=== PATIENT | male | born 1980 | race Caucasian/White ===

== ENCOUNTER 2016-07-28 15:23 | Emergency (ER) | payer BC ==
--- NOTE | 2016-07-28 16:12 | Emergency Department Record ---
History of Present Illness - General Chief Complaint: Numbness Stated Complaint: LEGS ARE NUMB Time Seen by Provider: 07/28/16 16:07 Source: Patient Mode of Arrival: Ambulatory Limitations: No limitations - History of Present Illness Initial Comments: 36 yo male presents to ED for evaluation of "numbness" the the lower extremities x 2 weeks. Patient reports that his symptoms worsen with ambulation and movement, denies any midline back pain, and denies and lower extremity weakness. Patient denies health problems at his baseline. Onset/Timin -: Week(s) Location: Left leg, Right leg History of same: No Severity: Moderate Quality: Numb Improves With: None Worsens With: None Associated Symptoms: Denies other symptoms - [place] Coma Scale Eye Response: (4) Open spontaneously Motor Response: (6) Obeys commands Verbal Response: (5) Oriented [place] Total: 15 - Related Data Home Medications: Previous Rx's Medication Instructions Recorded Metformin HCl [Glucophage] 500 mg PO BID #30 tablet 07/28/16 Allergies/Adverse Reactions: Allergies Allergy/AdvReac Type Severity Reaction Status Date / Time No Known Drug Allergies Allergy Verified 09/03/14 10:07 Travel Screening - Travel/Exposure Within Last 30 Days Have you traveled within the last 30 days?: No - Travel/Exposure Within Last Year Have you traveled outside the [place] in the last year?: No - Additonal Travel Details Have you been exposed to anyone with a communicable illness?: No - Travel Symptoms Symptom Screening: None Review of Systems Constitutional: Denies: Chills, Fever, Malaise, Night sweats Eyes: Denies: Eye discharge, Eye pain ENT: Denies: Congestion, Ear pain, Epistaxis Respiratory: Denies: Cough, Dyspnea Cardiovascular: Denies: Chest pain, Dyspnea on exertion Endocrine: Denies: Fatigue, Heat or cold intolerance Gastrointestinal: Denies: Abdominal pain, Nausea, Vomiting Genitourinary: Denies: Incontinence, Retention Musculoskeletal: Denies: Arthralgia, Back pain, Gout, Joint swelling Skin: Denies: Bruising, Change in color Neurological: Reports: Numbness. Denies: Abnormal gait, Confusion, Headache, Seizure Psychiatric: Denies: Anxiety Hematological/Lymphatic: Denies: Anemia, Blood Clots Past Medical History - SOCIAL HISTORY Smoking Status: Light tobacco smoker (<10/day) Alcohol Use: Rare Drug Use: Heavy Drug Use Detail:: Marijuana - RESPIRATORY Hx Respiratory Disorders: No - CARDIOVASCULAR Hx Cardio Disorders: No - NEURO Hx Neuro Disorders: No - GI Hx GI Disorders: Yes Hx Reflux: Yes - Hx Genitourinary Disorders: No - ENDOCRINE Hx Endocrine Disorders: No - MUSCULOSKELETAL Hx Musculoskeletal Disorders: No - PSYCH Hx Psych Problems: No - HEMATOLOGY/ONCOLOGY Hx Hematology/Oncology Disorders: No Family Medical History Any Significant Family History?: No Physical Exam - General General Appearance: Alert, Oriented x3, Cooperative, No acute distress Limitations: No limitations - Head Head exam: Atraumatic, Normocephalic, Normal inspection Head exam detail: negative: Abrasion, Contusion, Hartman's sign, General tenderness, Hematoma, Laceration - Eye Eye exam: Normal appearance. negative: Conjunctival injection, Periorbital swelling, Periorbital tenderness, Scleral icterus - ENT Ear exam: negative: Auricular hematoma, Auricular trauma Nasal Exam: negative: Active bleeding, Discharge, Dried blood, Foreign body Mouth exam: negative: Drooling, Laceration, Muffled voice, Tongue elevation - Neck Neck exam: Normal inspection. negative: Meningismus, Tenderness - Respiratory Respiratory exam: Normal lung sounds bilaterally. negative: Rales, Respiratory distress, Rhonchi, Stridor, Wheezes - Cardiovascular Cardiovascular Exam: Regular rate, Normal rhythm, Normal heart sounds - GI/Abdominal GI/Abdominal exam: Soft. negative: Rebound, Rigid, Tenderness - Rectal Rectal exam: Deferred - exam: Deferred - Extremities Extremities exam: Normal inspection, Other (FROM of the lwer extremities, EHL, foot dorsiflexion, and plantar flexion are all 5/5 and symmetric bilaterally, patient has sensation to all dermatomes of the lower extremties bilaterally.). negative: Calf tenderness, Pedal edema, Tenderness - Back Back exam: Denies: CVA tenderness (R), CVA tenderness (L) - Neurological Neurological exam: Alert, Normal gait, Oriented X3 - Psychiatric Psychiatric exam: Normal affect, Normal mood - Skin Skin exam: Normal color. negative: Abrasion Type of lesion: negative: abrasion Course Vital Signs 07/28/16 15:37 Temperature 98.5 F Pulse Rate [ 99 H Pulse Ox Probe] Respiratory 18 Rate Blood Pressure 130/86 [Left Arm] Pulse Ox 97 - Reevaluation(s) Reevaluation #1: 07/28/16 16:11 On examination, patient has very flat affect, stands and ambulates easily, no evidence for spinal cord impingement syndrome on examination. Neurological examination is normal as well, and CT Brain imaging does not appear indicated based on the patient's symptomology. Reevaluation #2: 07/28/16 16:40 Labs reviewed, glucose is 294, otherwise labs are grossly unremarkable for an acute process. Reevaluation #3: 07/28/16 16:46 Case was discussed with Sommer, agrees with starting Glucophage 500 mg BID with follow-up in the clinic later this week. Patient appears stable for discharge at this time. Reevaluation #4: 07/28/16 17:12 Patient will be able to follow-up in the clinic tomorrow at 2:40. Medical Decision Making - Lab Data Result diagrams: 07/28/16 16:16 07/28/16 16:16 Disposition Disposition: Discharge Clinical Impression: Hyperglycemia Disposition: Home, Self-Care Condition: (2) Stable Instructions: Diabetic Hyperglycemia (ED) Additional Instructions: Return to ED if your symptoms or if you have any concerns. Metformin as directed. Follow-up with Dr. Carballo in the [facility] clinic in 3-5 days as directed. Prescriptions: Metformin HCl [Glucophage] 500 mg PO BID #30 tablet Forms: Patient Portal Access Time of Disposition: 16:44
[2016-07-28 16:29] LABS: BASO % 0.3 % (0-6); EOS % 1.9 % (0-6); GRAN % 55.2 % (47-80); HEMATOCRIT 48.5 % (42.0-52.0); HEMOGLOBIN 17.4 gm/dl (14.0-18.0); LYMPH % 36.5 % (16-45); MEAN CELL VOLUME 78.5 fl (81-97); MEAN CORPUSCULAR HEMOGLOBIN 28.1 pg (27-33); MEAN CORPUSCULAR HGB CONC 35.9 g/dl (32-36); MONO % 6.1 % (0-9); PLATELET COUNT 211 K/uL (130-400); RED BLOOD COUNT 6.18 M/uL (4.40-5.70); RED CELL DISTRIBUTION WIDTH 14.1 % (11.5-14.5); WHITE BLOOD COUNT W/O DIFF 10.6 K/uL (4.2-12.2)
[2016-07-28 16:33] LABS: ALB/GLOB RATIO 1.1 (1.1-1.8); ALBUMIN 4.8 gm/dL (3.5-5.0); ALKALINE PHOSPHATASE 80 U/L (38-126); ALT/SGPT 40 U/L (21-72); ANION GAP 7.5 (7-16); AST/SGOT 42 U/L (17-59); BLOOD UREA NITROGEN 9 mg/dL (9-20); CARBON DIOXIDE 26.5 mmol/L (22-30); CREATININE 0.7 mg/dL (0.66-1.25); EST GLOMERULAR FILTRATION RATE > 60 ml/min; GLUCOSE,RANDOM 294 mg/dL (70-110); TOTAL PROTEIN 9.3 gm/dL (6.3-8.2)
== END 2016-07-28 17:15 | disposition home or self-care (01) ==
LOC: ER 15:23
DX: E11.65 Type 2 diabetes mellitus with hyperglycemia (principal); Z79.84 Long term (current) use of oral hypoglycemic drugs; R20.0 Anesthesia of skin
CPT/HCPCS: 80053; 83036; 85025; 99283

== ENCOUNTER 2018-04-22 14:24 | Emergency (ER) | payer SELFPAY ==
[2018-04-22] MEDS ORDERED: TRANEXAMIC ACID 1,000 MG/10 ML ML TOP ONE (14:36)
[2018-04-22] MEDS ORDERED: THROMBIN/GELATIN FOAM HEMOSTAT (THROMBI-GEL) TP ONE ×2 (14:36→15:40)
[2018-04-22] MEDS ORDERED: Diph,Pert(Acell),Tet Vac 0.5 ML SYR IM ONE (14:40)
--- NOTE | 2018-04-22 14:40 | Emergency Department Record ---
History of Present Illness - General Chief Complaint: Laceration(s) Stated Complaint: LACERATION ON LT HAND Time Seen by Provider: 04/22/18 14:36 Source: Patient Mode of Arrival: Ambulatory Limitations: No limitations - History of Present Illness Initial Commments: 38 yo male presents with a left finger injury. She was using a knife to work on a fishing reel and sliced off a segment of skin. No loss of ROM, tingling or numbness. He is on Coumadin for several peripheral aortic disease. -: Minutes(s) Extremity Location: Left: Hand (index finger) Place: Home Context: Accidental, Sharp object use Associated Symptoms: None Treatments Prior to Arrival: Bandage - [place] Coma Scale Eye Response: (4) Open spontaneously Motor Response: (6) Obeys commands Verbal Response: (5) Oriented [place] Total: 15 - Related Data Home Medications Medication Instructions Recorded Confirmed Last Taken Aspirin [Adult Aspirin] 81 mg PO DAILY 04/22/18 04/22/18 04/21/18 Atorvastatin Calcium [Lipitor] 40 mg PO QHS 04/22/18 04/22/18 04/21/18 Glipizide 10 mg PO BID 04/22/18 04/22/18 04/22/18 Warfarin Sodium [Coumadin] 7.5 mg PO DAILY 04/22/18 04/22/18 04/21/18 Previous Rx's Medication Instructions Recorded Cephalexin [Keflex] 500 mg PO TID #21 cap 04/22/18 Allergies Allergy/AdvReac Type Severity Reaction Status Date / Time No Known Drug Allergies Allergy Unverified 07/29/16 14:40 Review of Systems Constitutional: Denies: Chills, Fever, Malaise, Weakness Eyes: Denies: Eye discharge ENT: Denies: Congestion, Throat pain Respiratory: Denies: Cough Cardiovascular: Denies: Chest pain, Palpitations, Syncope Endocrine: Denies: Fatigue Gastrointestinal: Denies: Abdominal pain, Diarrhea, Nausea, Vomiting Genitourinary: Denies: Dysuria, Frequency Musculoskeletal: Denies: Arthralgia, Back pain, Myalgia Skin: Denies: Bruising, Change in color, Rash Neurological: Denies: Headache, Numbness, Tingling, Weakness Psychiatric: Denies: Anxiety Hematological/Lymphatic: Reports: Easy bleeding, Easy bruising Past Medical History - SOCIAL HISTORY Smoking Status: Light tobacco smoker (<10/day) Drug Use: Heavy Drug Use Detail:: Marijuana - RESPIRATORY Hx Respiratory Disorders: No - CARDIOVASCULAR Hx Cardio Disorders: No - NEURO Hx Neuro Disorders: No - GI Hx GI Disorders: Yes Hx Reflux: Yes - Hx Genitourinary Disorders: No - ENDOCRINE Hx Endocrine Disorders: No - MUSCULOSKELETAL Hx Musculoskeletal Disorders: No - PSYCH Hx Psych Problems: No - HEMATOLOGY/ONCOLOGY Hx Hematology/Oncology Disorders: No Physical Exam - General General Appearance: Alert, Oriented x3, Cooperative, No acute distress Limitations: No limitations - Head Head exam: Atraumatic, Normal inspection - Eye Eye exam: Normal appearance. negative: Conjunctival injection - ENT ENT exam: Normal exam, Mucous membranes moist Ear exam: Normal external inspection Nasal Exam: Normal inspection Mouth exam: Normal external inspection - Neck Neck exam: Normal inspection - Cardiovascular Cardiovascular Exam: Regular rate, Normal rhythm, Normal heart sounds Peripheral Pulses: 2+: Radial (L) - Rectal Rectal exam: Deferred - exam: Deferred - Extremities Extremities exam: Full ROM. negative: Normal inspection, Joint swelling, Tenderness Image of Hand: 1 - skin avulsion type 1.2 x 3cm with visible tendon. The tendon does not appear injured. He has full ROM. - Neurological Neurological exam: Alert, Oriented X3 - Psychiatric Psychiatric exam: Normal affect, Normal mood. negative: Agitated, Anxious - Skin Skin exam: Dry, Intact, Normal color, Warm Course - Reevaluation(s) Reevaluation #1: The HGB was reviewed. 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 04/22/18 16:[address] Hand Surgery Dr Giordano. He did not recommend emergency surgery for this type of injury. His recommendation was continued pressure with the thrombigel. If the bleeding dose not stop he may have to have his coumadin reversed. 04/22/18 17:14 On recheck the bleeding has stopped. The Thrombigel was left inplace. New LOOSELY applied gauze replaced in a non constricting manner was replaced. No oozing or bleeding No finger pain per the patient. He states the dressing is comfortable He has brisk capillary refill He will be splinted as well to avoid flexion that could restart the bleeding Keflex Rx provided We discussed reasons to return/be seen immediately He is to call Dr Giordano Wednesday morning for an office recheck for evaluation if skin grafting will be required Keflex prescription was sent to his pharmacy Medical Decision Making - Lab Data Result diagrams: 04/22/18 15:10 Disposition Disposition: Discharge Clinical Impression: Avulsion of skin of finger Qualifiers: Encounter type: initial encounter Qualified Code(s): S61.209A - Unspecified open wound of unspecified finger without damage to nail, initial encounter Disposition: Home, Self-Care Condition: (1) Good Instructions: Skin Avulsion (ED) Additional Instructions: Use the splint at all times You have been referred to hand surgery for follow up Call Wednesday to get your appointment time Prescriptions: Cephalexin [Keflex] 500 mg PO TID #21 cap Referrals: RILEY GIORDANO [MEDICAL DOCTOR] - Forms: Patient Portal Access Time of Disposition: 17:17 Quality - Quality Measures Quality Measures: N/A - Blood Pressure Screening Does Patient Have Any of the Following: Active Dx of HTN Blood Pressure Classification: Pre-Hypertensive BP Reading Systolic Measurement: 154 Diastolic Measurement: 86 Screening for High Blood Pressure: Patient Exclusion, Hx of HTN [[id number]]
[2018-04-22 15:17] LABS: BASO % 0.2 % (0-6); EOS % 1.9 % (0-6); HEMATOCRIT 45.5 % (42.0-52.0); HEMOGLOBIN 15.3 gm/dl (14.0-18.0); LYMPH % 35.8 % (16-45); MEAN CELL VOLUME 76.1 fl (81-97); MEAN CORPUSCULAR HGB CONC 33.6 g/dl (32-36); MEAN PLATELET VOLUME 10.2 fl (7.4-10.4); MONO % 7.1 % (0-9); PLATELET COUNT 251 K/uL (130-400); RED BLOOD COUNT 5.98 M/uL (4.40-5.70); RED CELL DISTRIBUTION WIDTH 15.2 % (11.5-14.5); WHITE BLOOD COUNT W/O DIFF 9.4 K/uL (4.2-12.2)
[2018-04-22 15:24] LABS: MEAN CORPUSCULAR HEMOGLOBIN 25.5 pg (27-33)
[2018-04-22 15:30] LABS: INR 2.6; PROTHROMBIN TIME (PATIENT) 25.8 SECONDS (9.5-12.1)
[2018-04-22] MEDS ORDERED: CEPHALEXIN 500 MG CAPSULE PO STA (16:53)
== END 2018-04-22 17:30 | disposition home or self-care (01) ==
LOC: ER 14:24
DX: S66.321A Laceration of extensor muscle, fascia and tendon of left index finger at wrist and hand level, initial encounter (principal); S61.211A Laceration without foreign body of left index finger without damage to nail, initial encounter; W26.0XXA Contact with knife, initial encounter; I10 Essential (primary) hypertension; Z79.01 Long term (current) use of anticoagulants; Y92.009 Unspecified place in unspecified non-institutional (private) residence as the place of occurrence of the external cause; F17.210 Nicotine dependence, cigarettes, uncomplicated
CPT/HCPCS: 29130; 99284 ×2; 96372; 85025; 85610; J3490; 90715